=== PATIENT | female | born 1950 ===

== ENCOUNTER 2020-07-25 06:33 | Day surgery (SDC) | payer OTHER ==
[~2020-07-25 06:33] MED LIST: COZAAR25 MG PO; PRISTIQ ER50 MG PO
[2020-07-25] MEDS ORDERED: MACROBID 100 M100 MG PO (12:18)
[2020-07-25] MEDS ORDERED: ULTRACET PO (12:19)
== END 2020-07-25 16:45 | disposition home or self-care (01) ==
LOC: CIR.AMB 06:33
PROVIDERS: ATTEND Obstetrics & Gynecology Gynecology
DX: N81.5 Vaginal enterocele (principal); N81.6 Rectocele; Z20.828 Contact with and (suspected) exposure to other viral communicable diseases

== ENCOUNTER 2020-07-28 11:08 | Emergency (ER) | payer OTHER ==
[~2020-07-28] VITALS: Ht 165.1 cm; Wt 61.2 kg
[~2020-07-28 11:08] MED LIST changes: +MACROBID 100 M100 MG PO; +ULTRACET PO
== END 2020-07-28 14:17 | disposition home or self-care (01) ==
LOC: ER 11:08
DX: M79.604 Pain in right leg (principal)